=== PATIENT | female | born 1995 | race Caucasian/White ===

== ENCOUNTER → 2017-10-20 | Outpatient (CLI) | payer OTHER ==
[~2017-10-20] VITALS: Ht 152.4 cm; Wt 81.6 kg
[~2017-10-20] MED LIST: PRENATAL1 TAB
== END | disposition home or self-care (01) ==
LOC: PPHC 15:05
DX: Z02.79 Encounter for issue of other medical certificate (principal)

== ENCOUNTER → 2018-02-06 | Emergency (ER) | payer OTHER ==
[~2018-02-06] VITALS: Ht 157.5 cm; Wt 81.6 kg
== END | disposition home or self-care (01) ==
LOC: ER 21:40
DX: M54.2 Cervicalgia (principal); M62.830 Muscle spasm of back

== ENCOUNTER 2018-11-01 10:35 | Emergency (ER) | payer OTHER ==
[~2018-11-01] VITALS: Ht 157.5 cm; Wt 68.0 kg
== END 2018-11-01 12:47 | disposition home or self-care (01) ==
LOC: ER 10:35
DX: J03.80 Acute tonsillitis due to other specified organisms (principal)

== ENCOUNTER 2019-02-23 15:24 | Emergency (ER) | payer OTHER ==
[~2019-02-23] VITALS: Ht 157.5 cm; Wt 86.2 kg
== END 2019-02-23 17:31 | disposition home or self-care (01) ==
LOC: ER 15:24
DX: O20.0 Threatened abortion (principal)

== ENCOUNTER 2019-03-10 21:27 | Emergency (ER) | payer OTHER ==
[~2019-03-10] VITALS: Ht 157.5 cm; Wt 81.6 kg
[2019-03-10] MEDS ORDERED: TORADOL60 MG (21:48)
== END 2019-03-11 03:08 | disposition home or self-care (01) ==
LOC: ER 21:27
DX: O20.0 Threatened abortion (principal)